=== PATIENT | male | born 1960 | race Caucasian/White ===

== ENCOUNTER → 2018-02-22 | Day surgery (SDC) | payer OTHER ==
[~2018-02-22] VITALS: Ht 190.5 cm; Wt 120.2 kg
[~2018-02-22] MED LIST: ASPIRIN EC81 M1 PO; ATORVASTATIN CA40 M1 PO; COZAAR50 M1 PO; FENOFIBRATE160 M1 PO; FLUTICASONE PRO16 GM NASB
--- NOTE | 2018-02-22 13:38 | Operative Report ---
Operative/Inv Procedure Report Surgery Date: 02/22/18 Name of Procedure: 1. Open repair of ventral hernia with mesh 2. Laparoscopic bilateral inguinal hernia repair Pre-Operative Diagnosis: Umbilical hernia Bilateral inguinal hernia Post-Operative Diagnosis: Ventral hernia Bilaterally hernia Estimated Blood Loss: surjit Surgeon/Lead Welder: Edward MIRANDA,Vj Andrade/Brooke CONTRERAS Anesthesia: general endotracheal tube Implants: Parietex inguinal hernia mesh Bard ventral X6.4 centimeter Operative Indication: Patient with long-standing umbilical hernia presents for repair. His found to have bilateral inguinal hernias on examination. He presents for repair of all 3 Operative/Procedure Note Note: After consent patient is brought to the operating room laid supine. General anesthesia was obtained and the abdomen was prepped and draped. Skin was anesthetized with local anesthesia and a transverse infraumbilical incision made sharply. We identified the rectus fascia and incised transversely. Stay sutures were placed. Rectus muscle was retracted laterally and a dissecting balloon placed posterior to it. It was inflated under direct vision the camera and replaced with a blunt Ewing port. Gas was instilled. 2, 5 mm ports were placed in the infraumbilical midline after local anesthesia was instilled and under direct vision and camera. Began our dissection at the pubis and delineated the symphysis. Ryan's ligament was identified and cleared on the left side. Then dissected laterally and developed the iliopubic tract. The cord structures were circumferentially dissected. There is a large indirect fat- containing hernia which was delivered from the indirect space and reflected medially. Once the dissection was completed a left -sided piece of Parietex mesh was placed in the cavity. It was placed around the cord structures re- create the internal ring and cover the femoral and direct spaces as well. We then turned attention to the contralateral side. Dissection was carried forth similarly. A fat-containing indirect hernia was also encountered. Mesh was placed in a similar fashion. During the dissection large peritoneal hole was created. After placement of mesh so hole was closed with interrupted Endoloop sutures. Gas was allowed to escape on maintaining proper orientation of the mesh. The fascia was closed with 0 Vicryl suture. A curvilinear incision was then lengthened at the umbilical site.. We dissected down to the umbilical stalk and circumferentially dissected it bluntly. The stock was then transected with cautery, thus exposing the defect. The hernia sac was circumferentially dissected down to level of fascia and incised the neck with cautery. Contents were then reduced. In addition to the umbilical defect there were 2 smaller fascial defects just superiorly. Preperitoneal planes were then created a circumferential fashion due to the need for preperitoneal mesh placement. A 6.4 cm ventral X mesh was then chosen. The mesh was rolled up and placed in the preperitoneal cavity then unraveled below the defect. The fascia was then closed over the mesh with interrupted 0 Maxon sutures, incorporating a portion of the mesh laterally to keep it centered. Wound was irrigated with saline. The umbilical stalk re-created with 3-0 Vicryl. Incision was then closed in layers of Vicryl. Sterile dressings were applied. Sponge and needle counts are correct Findings: Indirect CC: Kathya MIRANDA,Masoud Fernandez
== END ==
LOC: STS 02-15 07:00
DX: K40.20 Bilateral inguinal hernia, without obstruction or gangrene, not specified as recurrent (principal); K42.9 Umbilical hernia without obstruction or gangrene; E66.9 Obesity, unspecified; Z68.30 Body mass index [BMI] 30.0-30.9, adult; I10 Essential (primary) hypertension; G47.33 Obstructive sleep apnea (adult) (pediatric)
CPT/HCPCS: C1781; J0131; J0690; J1100; J1885; J2250; J2405; J2765